=== PATIENT | male | born 1965 | race Caucasian/White ===

== ENCOUNTER 2017-09-24 22:59 | Emergency (ER) | END 2017-09-25 01:10 | disposition home or self-care (01) ==

== ENCOUNTER 2017-11-03 22:08 | Emergency (ER) | END 2017-11-04 02:38 | disposition home or self-care (01) ==

== ENCOUNTER 2017-12-10 09:17 | Emergency (ER) | END 2017-12-10 11:44 | disposition home or self-care (01) ==